=== PATIENT | female | born 1970 | race Caucasian/White ===

== ENCOUNTER 2017-06-22 10:35 | Outpatient (CLI) | payer OTHER ==
[~2017-06-22 10:35] MED LIST: INTEGRA F CAPS1 EACH PO; LOSARTAN POTASS50 MG PO; OMEPRAZOLE20 MG PO; PERCOCET 5-3251 EACH PO; PROBIOTIC & AC1 EACH PO
== END 2017-06-22 10:49 | disposition home or self-care (01) ==
LOC: LAB 10:35
DX: D47.2 Monoclonal gammopathy (principal); I10 Essential (primary) hypertension; D50.8 Other iron deficiency anemias; D51.8 Other vitamin B12 deficiency anemias

== ENCOUNTER 2018-05-28 06:39 | Day surgery (SDC) | payer OTHER | END 2018-05-28 11:50 | disposition home or self-care (01) | LOC: AMB-ENDOS 06:39 | DX: C18.7 Malignant neoplasm of sigmoid colon (principal) ==

== ENCOUNTER 2018-06-25 11:05 | Inpatient (IN) | payer OTHER ==
[~2018-06-25] VITALS: Ht 157.5 cm; Wt 83.9 kg
[2018-07-04] MEDS ORDERED: INTESTINEX680 M1 PO (18:16)
[2018-07-04] MEDS ORDERED: PERCOCET 5-3251 EACH PO (18:16)
== END 2018-07-04 19:05 | disposition home or self-care (01) | DRG 330 ==
LOC: SURH 06-26 05:35 → O/R 06-26 05:35 → SURH 06-26 13:47 → OB/GYN 06-26 15:41 → SURH 06-26 15:52
PROVIDERS: ADMIT Surgery
PROC: 07TC4ZZ Resection of Pelvis Lymphatic, Percutaneous Endoscopic Approach (ICD-10-PCS; 2018-06-26)
PROC: 0T788DZ Dilation of Bilateral Ureters with Intraluminal Device, Via Natural or Artificial Opening Endoscopic (ICD-10-PCS; 2018-06-26)
PROC: 0DJD8ZZ Inspection of Lower Intestinal Tract, Via Natural or Artificial Opening Endoscopic (ICD-10-PCS; 2018-06-26)
PROC: 0DTN4ZZ Resection of Sigmoid Colon, Percutaneous Endoscopic Approach (ICD-10-PCS; principal; 2018-06-26 14:00)
PROC: 4A033R1 Measurement of Arterial Saturation, Peripheral, Percutaneous Approach (ICD-10-PCS; 2018-06-28)
PROC: 4A12X4Z Monitoring of Cardiac Electrical Activity, External Approach (ICD-10-PCS; 2018-06-28)
PROC: BW24ZZZ Computerized Tomography (CT Scan) of Chest and Abdomen (ICD-10-PCS; 2018-06-29)
PROC: 3E0F7GC Introduction of Other Therapeutic Substance into Respiratory Tract, Via Natural or Artificial Opening (ICD-10-PCS; 2018-06-29)
DX: C18.7 Malignant neoplasm of sigmoid colon (principal); J98.11 Atelectasis; J90 Pleural effusion, not elsewhere classified; R59.0 Localized enlarged lymph nodes; I11.9 Hypertensive heart disease without heart failure; I73.89 Other specified peripheral vascular diseases; R09.02 Hypoxemia; D47.2 Monoclonal gammopathy

== ENCOUNTER 2018-07-11 19:10 | Emergency (ER) | payer OTHER ==
[~2018-07-11] VITALS: Ht 157.5 cm; Wt 80.7 kg
[~2018-07-11 19:10] MED LIST changes: +INTESTINEX680 M1 PO
== END 2018-07-12 14:58 | disposition home or self-care (01) ==
LOC: ER 19:10
DX: K62.89 Other specified diseases of anus and rectum (principal); R06.02 Shortness of breath; R91.1 Solitary pulmonary nodule

== ENCOUNTER 2018-07-25 11:52 | Inpatient (IN) | payer OTHER ==
[~2018-07-25] VITALS: Ht 157.5 cm; Wt 78.9 kg
[2018-08-09] MEDS ORDERED: OMEPRAZOLE20 MG PO ×2 (17:39→17:50)
[2018-08-09] MEDS ORDERED: INTESTINEX680 M1 PO ×2 (17:39→17:50)
[2018-08-09] MEDS ORDERED: AMOX-CLAV 875-1 EACH PO ×2 (17:39→17:50)
[2018-08-09] MEDS ORDERED: POLY119PG PO (17:50)
== END 2018-08-09 18:19 | disposition home or self-care (01) | DRG 372 ==
LOC: ER 11:52 → MEDI 18:54 → MEDJ 18:54
PROVIDERS: ADMIT Surgery
PROC: BW21ZZZ Computerized Tomography (CT Scan) of Abdomen and Pelvis (ICD-10-PCS; 2018-07-26)
PROC: 0W9F3ZZ Drainage of Abdominal Wall, Percutaneous Approach (ICD-10-PCS; principal; 2018-07-27)
PROC: 02HV33Z Insertion of Infusion Device into Superior Vena Cava, Percutaneous Approach (ICD-10-PCS; 2018-07-28)
PROC: B246ZZZ Ultrasonography of Right and Left Heart (ICD-10-PCS; 2018-08-01)
DX: K65.1 Peritoneal abscess (principal); C18.7 Malignant neoplasm of sigmoid colon; D63.0 Anemia in neoplastic disease; K62.89 Other specified diseases of anus and rectum; R63.0 Anorexia; I11.9 Hypertensive heart disease without heart failure; I73.89 Other specified peripheral vascular diseases; D47.2 Monoclonal gammopathy; K21.9 Gastro-esophageal reflux disease without esophagitis; E83.59 Other disorders of calcium metabolism; N29 Other disorders of kidney and ureter in diseases classified elsewhere; E66.8 Other obesity

== ENCOUNTER 2019-08-07 15:05 | Inpatient (IN) | payer OTHER ==
[~2019-08-07] VITALS: Ht 157.5 cm; Wt 68.0 kg
[~2019-08-07 15:05] MED LIST changes: +AMOX-CLAV 875-1 EACH PO; +POLY119PG PO
--- NOTE | 2019-08-07 15:42 | NUR ---
SE RECIBE PACIENTE ALERTA Y ORINETADA REFIERE TENER DOLOR EN BRAZO KALI INDICA LA ENVIA A ARIANNA DE EMERGENCIA EL DR. DOWNING PARA ADMITIR PACIENTE REFIERE TENR CUAGULO . INIDICA LE REMOVERA EL MEDPORT. SE PRESENTA A DR. ZIEGLER Y SE REALIZA EKG.
--- NOTE | 2019-08-07 16:24 | NUR ---
PACIENTE ALERTA Y ORIENTADA X3. SE ORIENTA SOBRE PROCEDIMIENTO A REALIZAR Y REFIERE ENTENDER. SE REALIZA MUESTRAS DE LABORATORIO BAJO MEDIDAS ASEPTICAS Y CANALIZACION. PENDIENTE PLACA ORDENADA POR . SE MANTIENE BAJO OBSERVACION POR CAMBIOS SIGNIFICATIVOS. PENDIENTE MUESTRA DE U/A, PACIENTE CON ENVASE.
== END 2019-08-09 11:50 | disposition home or self-care (01) | DRG 253 ==
LOC: ER 15:05 → SEC-K 17:03 → SURH 17:03
PROVIDERS: ADMIT Specialist
PROC: 8E0ZXY6 Isolation (ICD-10-PCS; 2019-08-07)
PROC: 0JPV0WZ Removal of Totally Implantable Vascular Access Device from Upper Extremity Subcutaneous Tissue and Fascia, Open Approach (ICD-10-PCS; 2019-08-08)
PROC: 05PY03Z Removal of Infusion Device from Upper Vein, Open Approach (ICD-10-PCS; principal; 2019-08-08 07:00)
DX: T82.868A Thrombosis due to vascular prosthetic devices, implants and grafts, initial encounter (principal); C18.8 Malignant neoplasm of overlapping sites of colon; Y83.8 Other surgical procedures as the cause of abnormal reaction of the patient, or of later complication, without mention of misadventure at the time of the procedure; Y92.89 Other specified places as the place of occurrence of the external cause; I11.9 Hypertensive heart disease without heart failure